=== PATIENT | male | born 1975 | race Caucasian/White ===

== ENCOUNTER 2018-11-01 09:11 | Emergency (ER) | payer SELFPAY ==
[2018-11-01 09:43] LABS: Absolute Lymphocytes (CBC) 2.2 K/uL (0.7-4.9); Absolute Monocytes 1.1 K/uL (0.1-1.3); Absolute Neutrophil 7.3 K/uL (1.8-8.0); Basophils % 0.5 % (0-1.3); Eosinophils % 0.6 % (0-4.4); Hematocrit 46.5 % (39.6-49.0); Lymphocytes % 20.8 % (15.3-44.8); MPV 8.5 fL (7.6-11.3); Monocytes % 10.5 % (3.3-12.3); RBC Red Blood Cell Count 5.25 M/uL (4.33-5.43)
[2018-11-01 09:50] LABS: Protime INR 1.12
--- NOTE | 2018-11-01 09:58 | RAD REPORT ---
EXAM DESCRIPTION: RAD - Chest Single View - 11/01/2018 9:52 am CLINICAL HISTORY: CHEST PAIN Chest pain. COMPARISON: No comparisons FINDINGS: Portable technique limits examination quality. The lungs are grossly clear. The heart is normal in size. No displaced fractures. IMPRESSION: No acute intrathoracic process suspected.
[2018-11-01 10:03] LABS: ALT/SGPT 45 U/L (12-78); AST/SGOT 75 U/L (15-37); Albumin 4.2 g/dL (3.4-5.0); Alkaline Phosphatase 58 U/L (45-117); BUN Blood Urea Nitrogen 16 mg/dL (7-18); Bicarbonate 25 mmol/L (21-32); Bilirubin Direct 0.2 mg/dL (0-0.2); Glucose Level 98 mg/dL (74-106); Magnesium 2.4 mg/dL (1.8-2.4); NT PRO-BNP 34 pg/mL (<125); Potassium 3.3 mmol/L (3.5-5.1); Protein, Total 7.7 g/dL (6.4-8.2); Sodium Level 140 mmol/L (136-145); Troponin (Emerg Dept Use Only) < 0.02 ng/mL (0.0-0.045)
[2018-11-01] MEDS ORDERED: NA CHLORIDE 0.9% 1,000 ML ONE (10:26)
--- NOTE | 2018-11-01 11:59 | EKG ---
Test Date: 2018-11-01 Test Time: 09:26:11 Ict Customer Support Officer: ZARINA MEASUREMENT RESULTS: Intervals: Rate: 80 OK: 144 QRSD: 96 QT: 348 QTc: 401 [place]: P: 24 OK: 144 QRS: 33 T: 47 INTERPRETIVE STATEMENTS: Normal sinus rhythm Normal ECG No previous ECG available for comparison Electronically Signed On 11-01-18 11:58:05 AVIATION PROJECT MANAGER by Robb Gomez
--- NOTE | 2018-11-01 12:47 | ER ---
Nurse's Notes [facility] Name: Alireza Munguia Age: 43 yrs Sex: Male : 1975 Arrival Date: 11/01/2018 Time: 09:12 Bed 4 Private MD: Diagnosis: Chest pain;Palpitations Presentation: 11/01 09:13 Presenting complaint: Patient states: my chest is hurting, started 7 mins ago, i feel hj im about to pass out, i usually am bradycardic because i run, there's something going on in my heart right now;. Transition of care: patient was not received from another setting of care. Onset of symptoms was November 01, 2018. Risk Assessment: Do you want to hurt yourself or someone else? Patient reports no desire to harm self or others. Initial Sepsis Screen: Does the patient meet any 2 criteria? Yes Does the patient have a suspected source of infection? No. Patient's initial sepsis screen is negative. Care prior to arrival: None. 09:13 Method Of Arrival: Ambulatory 09:13 Acuity: HARRY 3 hj Triage Assessment: 09:21 General: Appears in no apparent distress. uncomfortable, Behavior is cooperative, hj appropriate for age, anxious. Pain: Complains of pain in chest. Cardiovascular: Capillary refill < 3 seconds Patient's skin is warm and dry. Historical: - Allergies: 09:14 PENICILLINS; 09:14 Dilaudid; hj - Home Meds: 09:14 Adderall XR 30 mg oral cp24 1 cap twice a day [Active]; hj - PMHx: 09:14 ADD/ADHD; hj - PSHx: 09:14 Hernia repair; hj - Immunization history:: Adult Immunizations up to date. - Social history:: Smoking status: Patient/guardian denies using tobacco, Patient/guardian denies using alcohol. - Ebola Screening: : Patient negative for fever greater than or equal to 101.5 degrees Fahrenheit, and additional compatible Ebola Virus Disease symptoms Patient denies exposure to infectious person Patient denies travel to an Ebola-affected area in the 21 days before illness onset. Screenin:21 Abuse screen: Denies threats or abuse. Denies injuries from another. Nutritional hj screening: No deficits noted. Tuberculosis screening: No symptoms or risk factors identified. Fall Risk None identified. Assessment: 09:21 Pain: Pain began 30 min ago. hj 09:25 General: Appears comfortable, Behavior is calm, cooperative. Pain: Complains of pain in aa5 mid-sternal area Pain does not radiate. Pain currently is 3 out of 10 on a pain scale. Quality of pain is described as pressure, Pain began this morning. Pt states "I woke up and felt that my pulse was around 30 and I started having chest pain" Is continuous. Neuro: Level of Consciousness is awake, alert, obeys commands, Oriented to person, place, time, situation. Cardiovascular: Reports chest pain, Heart tones S1 S2 present Capillary refill < 3 seconds is brisk in bilateral fingers Pulses are 3+ in right radial artery and left radial artery Rhythm is regular. Respiratory: Reports shortness of breath Airway is patent Respiratory effort is even, unlabored, Respiratory pattern is regular, symmetrical, Breath sounds are clear bilaterally. Denies cough. GI: No signs and/or symptoms were reported involving the gastrointestinal system. : No signs and/or symptoms were reported regarding the genitourinary system. EENT: No signs and/or symptoms were reported regarding the EENT system. Derm: Skin is pink, warm \\T\\ dry. Musculoskeletal: Range of motion: intact in all extremities. 10:10 Reassessment: Patient and/or family updated on plan of care and expected duration. Pain aa5 level reassessed. Patient is alert, oriented x 3, equal unlabored respirations, skin warm/dry/pink. Patient denies pain at this time. 10:50 Reassessment: Patient and/or family updated on plan of care and expected duration. Pain aa5 level reassessed. Patient is alert, oriented x 3, equal unlabored respirations, skin warm/dry/pink. Patient denies pain at this time. Pt sitting up in bed. States no complaints at this time. Pt notified of POC, Dr. Moss wants to repeat troponin around 1125, pt was notified and verbalizes understanding. NSR on monitor. . 11:30 Reassessment: Repeat troponin drawn by Maria Luisa Perez RN and sent to lab . aa5 12:50 Reassessment: Patient appears in no apparent distress at this time. Patient is alert, ca1 oriented x 3, equal unlabored respirations, skin warm/dry/pink. Patient denies pain at this time. Vital Signs: 09:12 BP 154 / 99; Pulse 128; Resp 18; Temp 98.1(TE); Pulse Ox 100% on R/A; Weight 97.52 kg; hj Height 5 ft. 11 in. (180.34 cm); Pain 5/10; 10:10 BP 134 / 91; Pulse 103; Resp 20 S; Pulse Ox 99% on R/A; aa5 10:10 aa5 10:50 BP 137 / 70; Pulse 75; Resp 16 S; Pulse Ox 99% on R/A; Pain 0/10; aa5 12:15 BP 139 / 92; Pulse 94; Resp 17; Pulse Ox 100% on R/A; ca1 12:50 BP 131 / 87; Pulse 87; Resp 18; Pulse Ox 100% on R/A; ca1 09:12 Body Mass Index 29.99 (97.52 kg, 180.34 cm) hj 10:10 Pt's HR fluctuating between 88bpm and 103bpm. Dr. Moss notified. Sinus rhythm and aa5 sinus tachycardia on monitor. ED Course: 09:12 Patient arrived in ED. hj 09:13 Triage completed. hj 09:21 Arm band placed on right wrist. hj 09:21 Patient has correct armband on for positive identification. Placed in gown. Bed in low hj position. Call light in reach. Side rails up X 1. monitoring coordinator on. Pulse ox on. NIBP on. 09:21 Patient maintains SpO2 saturation greater than 95% on room air. hj 09:25 Cristal Hui, RN is Primary Nurse. aa5 09:25 No provider procedures requiring assistance completed. Inserted saline lock: 20 gauge aa5 in right antecubital area, using aseptic technique. IV inserted by Michael Hernandez [facility]. 09:50 Keny Moss MD is Attending Physician. ps1 09:52 X-ray completed. Portable x-ray completed in exam room. Patient tolerated procedure jb2 well. 09:53 XRAY Chest (1 view) In Process Unspecified. EDMS 12:45 Meet Tiwari MD is Referral Physician. ps1 13:03 IV discontinued, intact, bleeding controlled, No redness/swelling at site. Pressure ca1 dressing applied. Administered Medications: 10:18 Drug: NS 0.9% 1000 ml Route: IV; Rate: 1 bolus; Site: right antecubital; ca1 12:28 Follow up: Response: No adverse reaction; IV Status: Completed infusion ca1 Outcome: 12:46 Discharge ordered by . ps1 13:03 Discharged to home ambulatory. ca1 13:03 Condition: stable 13:03 Condition: stable 13:03 Discharge instructions given to patient, Instructed on discharge instructions, follow up and referral plans. Demonstrated understanding of instructions, follow-up care. 13:05 Patient left the ED. ca1 Signatures: Dispatcher [employer] Quan Jordan Audri, RN RN aa5 Ketan Oro RN RN Keny Anne MD MD ps1 Maria Luisa Perez RN RN ca1 Corrections: (The following items were deleted from the chart) 09:21 09:13 Presenting complaint: Patient states: my chest is hurting, started 7 mins ago, gwendolyn snow
--- NOTE | 2018-11-01 12:47 | EDPHYS ---
Physician Documentation [facility] Name: Alireza Munguia Age: 43 yrs Sex: Male : 1975 Arrival Date: 11/01/2018 Time: 09:12 Bed 4 Private MD: ED Physician Keny Moss HPI: 11/01 12:40 This 43 yrs old Male presents to ER via Ambulatory with complaints of Chest ps1 Pain. 12:40 patient presenting with chest pain and tachycardia. patient states that it started this ps1 morning. He states that the pain is associated with feelings of palpitations. Pain rated as mild and improved. 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 Last episode a month ago. . Historical: - Allergies: :14 PENICILLINS; hj 09:14 Dilaudid; hj - Home Meds: :14 Adderall XR 30 mg oral cp24 1 cap twice a day [Active]; hj - PMHx: :14 ADD/ADHD; hj - PSHx: 09:14 Hernia repair; hj - Immunization history:: Adult Immunizations up to date. - Social history:: Smoking status: Patient/guardian denies using tobacco, Patient/guardian denies using alcohol. - Ebola Screening: : Patient negative for fever greater than or equal to 101.5 degrees Fahrenheit, and additional compatible Ebola Virus Disease symptoms Patient denies exposure to infectious person Patient denies travel to an Ebola-affected area in the 21 days before illness onset. ROS: 12:40 Constitutional: Negative for fever, chills, and weight loss, Eyes: Negative for injury, ps1 pain, redness, and discharge, ENT: Negative for injury, pain, and discharge, Respiratory: Negative for shortness of breath, cough, wheezing, and pleuritic chest pain, Abdomen/GI: Negative for abdominal pain, nausea, vomiting, diarrhea, and constipation, Back: Negative for injury and pain, MS/Extremity: Negative for injury and deformity, Skin: Negative for injury, rash, and discoloration, Neuro: Negative for headache, weakness, numbness, tingling, and seizure. 12:40 Cardiovascular: Positive for chest pain, palpitations. Exam: 12:40 Constitutional: This is a well developed, well nourished patient who is awake, alert, ps1 and in no acute distress. Head/Face: Normocephalic, atraumatic. Eyes: Pupils equal round and reactive to light, extra-ocular motions intact. Lids and lashes normal. Conjunctiva and sclera are non-icteric and not injected. Respiratory: Lungs have equal breath sounds bilaterally, clear to auscultation and percussion. No rales, rhonchi or wheezes noted. No increased work of breathing, no retractions or nasal flaring. Abdomen/GI: Soft, non-tender, with normal bowel sounds. No distension or tympany. No guarding or rebound. No evidence of tenderness throughout. Back: No spinal tenderness. No costovertebral tenderness. Full range of motion. Skin: Warm, dry with normal turgor. Normal color with no rashes, no lesions, and no evidence of cellulitis. MS/ Extremity: Pulses equal, no cyanosis. Neurovascular intact. Full, normal range of motion. Neuro: Awake and alert, GCS 15, oriented to person, place, time, and situation. Cranial nerves II-XII grossly intact. Sensory grossly intact. 12:40 Cardiovascular: Rate: tachycardic, Rhythm: regular, Pulses: no pulse deficits are appreciated, Heart sounds: murmur, not appreciated. 12:40 ECG was reviewed by the Attending Physician. Vital Signs: 09:12 BP 154 / 99; Pulse 128; Resp 18; Temp 98.1(TE); Pulse Ox 100% on R/A; Weight 97.52 kg; hj Height 5 ft. 11 in. (180.34 cm); Pain 5/10; 10:10 BP 134 / 91; Pulse 103; Resp 20 S; Pulse Ox 99% on R/A; aa5 10:10 aa5 10:50 BP 137 / 70; Pulse 75; Resp 16 S; Pulse Ox 99% on R/A; Pain 0/10; aa5 12:15 BP 139 / 92; Pulse 94; Resp 17; Pulse Ox 100% on R/A; ca1 12:50 BP 131 / 87; Pulse 87; Resp 18; Pulse Ox 100% on R/A; ca1 09:12 Body Mass Index 29.99 (97.52 kg, 180.34 cm) hj 10:10 Pt's HR fluctuating between 88bpm and 103bpm. Dr. Moss notified. Sinus rhythm and aa5 sinus tachycardia on monitor. MDM: 09:56 Patient medically screened. ps1 12:44 HEART Score: History: Slightly Suspicious (0), ECG: Normal (0), Age: < or = 45 years ps1 (0), Risk Factors: 1 or 2 risk factors (1), Troponin: < or = 1 x Normal Limit (0). Data reviewed: vital signs, nurses notes, lab test result(s), radiologic studies, and as a result, I will discharge patient. Data interpreted: cafeteria monitor: no afib. . Counseling: I had a detailed discussion with the patient and/or guardian regarding: the historical points, exam findings, and any diagnostic results supporting the discharge/admit diagnosis, lab results, radiology results, the need for outpatient follow up, for definitive care, a estate planning director. 11/01 09:29 Order name: Basic Metabolic Panel; Complete Time: 10:11/01 09:29 Order name: CBC with Diff; Complete Time: 09:56 11/01 09:29 Order name: LFT's; Complete Time: 10:11/01 09:29 Order name: Magnesium; Complete Time: 10:11/01 09:29 Order name: NT PRO-BNP; Complete Time: 10:11/01 09:29 Order name: PT-INR; Complete Time: :56 11/01 09:19 Order name: EKG; Complete Time: 09:20 hj 11/01 09:29 Order name: Troponin (emerg Dept Use Only); Complete Time: 10:13 11/01 09:29 Order name: XRAY Chest (1 view); Complete Time: 10:11/01 09:29 Order name: Cardiac monitoring; Complete Time: 09:29 11/01 09:29 Order name: EKG - Nurse/Tech; Complete Time: 09:30 11/01 09:29 Order name: IV Saline Lock; Complete Time: :11/01 11:09 Order name: Troponin (emerg Dept Use Only); Complete Time: 12:09 11/01 09:29 Order name: Labs collected and sent; Complete Time: 09:30 11/01 09:29 Order name: O2 Per Protocol; Complete Time: 09:30 14 09:29 Order name: O2 Sat Monitoring; Complete Time: EC:26 Rate is 80 beats/min. Rhythm is regular. QRS [place] is Normal. [place] interval is normal. QRS ps1 interval is normal. QT interval is normal. No Q waves. T waves are Normal. No ST changes noted. Clinical impression: Normal ECG. Interpreted by me. Administered Medications: 10:18 Drug: NS 0.9% 1000 ml Route: IV; Rate: 1 bolus; Site: right antecubital; ca1 12:28 Follow up: Response: No adverse reaction; IV Status: Completed infusion ca1 Disposition: 11/01/18 12:46 Discharged to Home. Impression: Chest pain, Palpitations. - Condition is Stable. - Discharge Instructions: Nonspecific Chest Pain, Palpitations, [id number]. - Medication Reconciliation Form, Thank You Letter, Antibiotic Education, Prescription Opioid Use form. - Follow up: Meet Tiwari MD; When: As needed; Reason: Further diagnostic work-up, Recheck today's complaints, Continuance of care. Follow up: Emergency Department; When: As needed; Reason: Worsening of condition. - Problem is new. - Symptoms have improved. Signatures: Dispatcher [employer] EDMS Cristal Hui RN RN aa5 Ketan Oro RN RN Keny Anne MD MD ps1 Maria Luisa Perez RN RN ca1 Corrections: (The following items were deleted from the chart) 13:05 12:46 11/01/2018 12:46 Discharged to Home. Impression: Chest pain; Palpitations. ca1 Condition is Stable. Forms are Medication Reconciliation Form, Thank You Letter, Antibiotic Education, Prescription Opioid Use. Follow up: Meet Tiwari; When: As needed; Reason: Further diagnostic work-up, Recheck today's complaints, Continuance of care. Follow up: Emergency Department; When: As needed; Reason: Worsening of condition. Problem is new. Symptoms have improved. ps1
== END 2018-11-01 13:05 | disposition home or self-care (01) ==
LOC: ER 09:11
DX: R00.2 Palpitations (principal); F90.9 Attention-deficit hyperactivity disorder, unspecified type; Z88.0 Allergy status to penicillin; Z88.6 Allergy status to analgesic agent
CPT/HCPCS: 36415; 71045; 80048; 80076; 83735; 83880; 84484; 85025; 85610; 93005; 96360; 96361; 99285; J7030

== ENCOUNTER 2018-11-09 08:09 | Observation (INO) | payer OTHER ==
[2018-11-09] MEDS ORDERED: ALPRAZOLAM 0.25 MG TABLET PO PRN (12:49)
[2018-11-09] MEDS ORDERED: ONDANSETRON 4 MG/2 ML VIAL IV PRN (12:49)
[2018-11-09] MEDS ORDERED: NITROGLYCERIN 0.4 MG/TAB SL PRN (12:49)
[2018-11-09] MEDS ORDERED: ACETAMINOPHEN 500 MG TAB PO PRN (12:49)
[2018-11-09] MEDS ORDERED: NA CHLORIDE 0.9% 1,000 ML IV SCH (13:00)
--- NOTE | 2018-11-09 13:00 | P.HP ---
Certification for Inpatient Patient admitted to: Observation With expected LOS: <2 Midnights Patient will require the following post-hospital care: None Practitioner: I am a practitioner with admitting privileges, knowledge of patient current condition, hospital course, and medical plan of care. Services: Services provided to patient in accordance with Admission requirements found in Title 42 Section 412.3 of the Code of Federal Regulations Patient History Date of Service: 11/09/18 Primary Care Provider: From [place] Reason for admission: Chest pain and palpitations History of Present Illness: 43-year-old male presented as a direct transfer from [facility] for chest pain and shortness of breath. Patient reports chest pain and shortness of breath today. Patient admits using methamphetamines and amphetamines. He takes this every now and then to help lose weight. It appears that he has used this in the past. He sometimes smokes it or injects. Patient was seen at the ER. Initial cardiac enzymes unremarkable. Patient was direct admitted for further evaluation. Patient denies any significant fever, chills. Mild shortness of breath noted. Patient reports history of hypertension in the past. He took medication for 6 months but stopped due to weight loss. Patient admits to alcohol and tobacco abuse. Allergies hydromorphone [From Dilaudid] Allergy (Verified 11/09/18 10:08) Itching/Hives/Rash Penicillins Allergy (Verified 11/09/18 10:08) Itching/Hives/Rash Home Medications: NK [No Home Meds] 11/09/18 - Past Medical/Surgical History Has patient received pneumonia vaccine in the past: No Diabetic: No -: HTN -: Illegal drug use-methamphetamines -: Tobacco use -: Alcohol use -: Hernia repair -: Fracture repair Psychosocial/ Personal History: Patient is - Family History Father -: Hypertension - Social History Smoking Status: Current every day smoker Alcohol use: Yes CD- Drugs: Yes Caffeine use: Yes Place of Residence: Home Review of Systems General: As per HPI Eyes: Unremarkable ENT: Unremarkable Respiratory: Shortness of Breath, As per HPI Cardiovascular: Chest Pain, Palpitations, As per HPI Gastrointestinal: Unremarkable Genitourinary: Unremarkable Musculoskeletal: Unremarkable Integumentary: Unremarkable Neurological: Unremarkable Lymphatics: Unremarkable Physical Examination - Vital Signs Temperature: 97.7 F Blood Pressure: 120/81 Pulse: 45 Respirations: 20 Pulse Ox (%): 100 - Physical Exam General: Alert, In no apparent distress, Oriented x3, Cooperative, Other ( Increased anxiety) HEENT: Atraumatic, Normocephalic, Mucous membr. moist/pink Neck: Supple, No Thyromegaly Respiratory: Clear to auscultation bilaterally, Normal air movement Cardiovascular: Normal pulses, Regular rate/rhythm Gastrointestinal: Normal bowel sounds, Soft and benign, Non-distended, No tenderness, No masses, No rebound, No guarding Musculoskeletal: No erythema, No tenderness, No warmth Integumentary: No tenderness/swelling, No erythema, No warmth, No cyanosis Neurological: Normal speech, Normal strength at 5/5 x4 extr, Normal tone, Abnormal affect (Increased anxiety) Assessment and Plan - Plan Impression: Chest pain with palpitations likely secondary to methamphetamine abuse History of hypertension Tobacco use Alcohol use Plan: Will continue monitor patient on telemetry. Will monitor cardiac enzymes. Will recheck EKG. Will order echocardiogram to further evaluate. Will discuss case with cardiology. Patient may require cardiac evaluation. Discharge Plan: Home Plan to discharge in: 24 Hours - Advance Directives Does patient have a Living Will: Yes Does patient have a Durable POA for Healthcare: Yes - Code Status/Comfort Care Code Status Assessed: Yes (Patient is full code.) Time Spent Managing Pts Care (In Minutes): 55
[2018-11-09 14:03] LABS: CKMB Creatine Kinase MB 4.8 ng/mL (0.3-3.6); Magnesium 2.5 mg/dL (1.8-2.4); Potassium 4.1 mmol/L (3.5-5.1)
[2018-11-09 14:09] LABS: Troponin I < 0.02 ng/mL (0.0-0.045)
[2018-11-09] MEDS ORDERED: ENOXAPARIN 40 MG/0.4 ML SQ SCH (17:00)
[2018-11-09 17:10] LABS: Urine Appearance CLEAR; Urine Bilirubin NEGATIVE (NEG); Urine Blood NEGATIVE (NEG); Urine Color YELLOW; Urine Glucose NEGATIVE (NEG); Urine Protein NEGATIVE (NEG); Urine pH 6.5 (5.0-7.0)
[2018-11-09 17:45] LABS: Urine Microscopic Reflex NO UMIC
--- NOTE | 2018-11-09 19:38 | EKG ---
Test Date: 2018-11-09 Test Time: 13:07:51 Blasting Contract Miner: SHRAVAN MEASUREMENT RESULTS: Intervals: Rate: 45 WI: 154 QRSD: 92 QT: 420 QTc: 363 [place]: P: 56 WI: 154 QRS: 76 T: 75 INTERPRETIVE STATEMENTS: Marked sinus bradycardia Abnormal ECG Compared to ECG 11/01/2018 09:26:11 Sinus rhythm no longer present Electronically Signed On 11-09-18 19:37:21 ADMINISTRATOR OF HOME HEALTH by Meet Tiwari
[2018-11-09] MEDS ORDERED: FAMOTIDINE 20 MG TAB PO SCH (21:00)
[2018-11-09] MEDS ORDERED: ATORVASTATIN 40 MG TAB PO SCH (21:00)
--- NOTE | 2018-11-10 02:57 | P.DS ---
Admission Date: 11/09/18 Discharge Date: 11/09/18 Primary Care Provider: From [place] Disposition: ROUTINE DISCHARGE Discharge Condition: GOOD Reason for Admission: Chest pain and palpitations Brief History of Present Illness: 43-year-old male presented as a direct transfer from [place] [facility] for chest pain and shortness of breath. Patient reports chest pain and shortness of breath today. Patient admits using methamphetamines and amphetamines. He takes this every now and then to help lose weight. It appears that he has used this in the past. He sometimes smokes it or injects. Patient was seen at the ER. Initial cardiac enzymes unremarkable. Patient was direct admitted for further evaluation. Patient denies any significant fever, chills. Mild shortness of breath noted. Patient reports history of hypertension in the past. He took medication for 6 months but stopped due to weight loss. Patient admits to alcohol and tobacco abuse. Hospital Course: The patient was admitted to the hospital due to chest pain, initial troponin I was negative, EKG without ST-T changes. Ches pain resolved. The patient is methamphetamines and amphetamines dependent. Gradually he become more anxious. The patient was evaluated by Dr Tiwari, who did not recommend further cardiac work up during this admission, and he cleared the patient for discharge. Subsequent the patient was discharged home in stable condition. Vital Signs/Physical Exam: Temp Pulse Resp BP Pulse Ox 98.3 F 60 20 122/77 100 11/09/18 16:00 11/09/18 16:00 11/09/18 16:00 11/09/18 16:00 11/09/18 16:00 General: Alert, In no apparent distress HEENT: Atraumatic, PERRLA, EOMI Neck: Supple, JVD not distended Respiratory: Clear to auscultation bilaterally, Normal air movement Cardiovascular: Regular rate/rhythm, Normal S1 S2 Gastrointestinal: Normal bowel sounds, No tenderness Musculoskeletal: No tenderness Integumentary: No rashes Neurological: Normal speech, Normal tone, Normal affect Laboratory Data at Discharge: Sodium 143 mmol/L (136-145) 11/09/18 13:28 Potassium 4.1 mmol/L (3.5-5.1) 11/09/18 13:28 BUN 17 mg/dL (7-18) 11/09/18 13:28 Creatinine 1.10 mg/dL (0.55-1.3) 11/09/18 13:28 Glucose 104 mg/dL (74-106) 11/09/18 13:28 Magnesium 2.5 mg/dL (1.8-2.4) H 11/09/18 13:28 Troponin I < 0.02 ng/mL (0.0-0.045) 11/09/18 13:28 Home Medications: NK [No Home Meds] 11/09/18 Patient Discharge Instructions: F/U with PCP next week or come back to ER any time if symptoms get worse. Diet: Regular Activity: Ad pietro Time spent managing pt's care (in minutes): 40
--- NOTE | 2018-11-10 06:49 | CON ---
Date of Consultation: 11/09/[address] Munoz' service on 11/09/2018. I saw the patient on 11/09/2018. Reason For Consultation: Chest pain. History Of Present Illness: Mr. Munguia is a 43-year-old white male who has a history of attention de ficit disorder. He gets most of his medication from his primary care physician who I believe lives [facility]. He now is living here and working here. The only medication he takes at home is Adde rall. History Of Present Illness: Mr. Munguia smokes and drinks and uses methamphetamine. He was positive on his drug screen when he came in. He came in with substernal chest pressure. No nausea, vomiting, diaphoresis, PND, orthopnea, pedal edema, palpitations, or syncope. Has negative EKG, negative ches t x-ray, negative troponin. His symptoms went away . He has no cardiac risk factors excep t for his tobacco issue. Denies hypertension, diabetes, dyslipidemia or family history of heart dise ase. Allergies: HE IS ALLERGIC TO PENICILLIN. Review of Systems: Positive for alcohol, tobacco, and drugs. Medications: At home include Adderall. Family History: Negative. Social History: As mentioned earlier. Physical Examination: General: Mr. Munguia was in no acute distress. Vital Signs: Stable, afebrile. HEENT: Negative. Neck: Supple. No bruit. Chest: Clear. Cardiac: Revealed a regular rhythm and rate. No murmurs, gallops, or rubs. Abdomen: Benign. Extremities: Revealed no clubbing, cyanosis, or edema. Diagnostic Data: All normal. Impression And Plan: Atypical chest pain, most likely musculoskeletal, possibly gastroesophageal ref lux disease in nature. So, there may be muscle spasm secondary to some of his drugs. He is ruled ou t for an [place] with normal EKGs, normal troponin. His CPK is mildly elevated, but consistent with acute coronary syndrome. I feel comfortable with Mr. Munguia going home whenever it is okay wit h Dr. Munoz. I do not feel there is an urge to do any cardiac testing on him. NB/MODL Voice ID: [id number] Report ID: [id number]
[2018-11-10] MEDS ORDERED: ASPIRIN EC 81 MG TAB PO SCH (09:00)
== END 2018-11-09 20:30 | disposition home or self-care (01) ==
LOC: 2ND 08:09
PROVIDERS: ADMIT Family Medicine; ATTEND Family Medicine
DX: R07.9 Chest pain, unspecified (principal); R00.2 Palpitations; F98.8 Other specified behavioral and emotional disorders with onset usually occurring in childhood and adolescence; F17.210 Nicotine dependence, cigarettes, uncomplicated; F15.10 Other stimulant abuse, uncomplicated; Z72.89 Other problems related to lifestyle; Z72.0 Tobacco use; Z88.0 Allergy status to penicillin
CPT/HCPCS: 36415; 80048; 81003; 82550; 82553; 83735; 84439; 84443; 84484; 93005; G0378; J1650; J7030